=== PATIENT | male | born 1965 | race Caucasian/White ===

== ENCOUNTER 2021-01-29 07:13 | Emergency (ER) | payer OTHER ==
[~2021-01-29] VITALS: Ht 185.4 cm; Wt 90.7 kg
[~2021-01-29 07:13] MED LIST: ACIDOPHILUS LA1 EACH PO; ADULT LOW DOSE81 MG PO; ALBUTEROL2.5 MG/31; ALBUTEROL2.5 MG/31 IH; AZITHROMYCIN 2250 MG PO; COMBIVENT INH; DIFLUCAN150 MG PO; DUONEB 2.5-0.5 M3 ML INH; DURAGESIC1 EAC2 TRANSDERM; FLUZONE 2045 MCG/011; IBUPROFEN 200200 M1 PO; KEFLEX500 MG PO; LISINOPRIL-HCT1 EAC1 PO; MEDROL DOSPAK21 TA1 PO; MILLTRIUM SENI1 EACH PO; MOBIC7.5 M1 PO; NOHOMEMEDICATIONS; NORCO 5-325 TA1 EACH PO; OMEGA-31000 M1; OXYCODONE HCL5 M1 PO; PERCOCET PO; PNEUMOVAX25 MCG/0.5; PREDNISONE 20 M20 M1 PO; PREDNISONE 20 M20 MG PO; PROVENTIL HFA6.7 G1 INH; VANCOMYCIN1.25 GM/25 IV; VENTOLIN HFA 1818 GM INH; VITAMIN D400 UNI1; ZPAK PO
[2021-01-29] MEDS ORDERED: TESSALON PERLE100 MG PO (08:32)
[2021-01-29] MEDS ORDERED: VENTOLIN HFA 1818 GM INH (08:32)
[2021-01-29 08:42] VITALS: BP 152/72
== END 2021-01-29 08:52 | disposition home or self-care (01) ==
LOC: M.ERS 07:13
DX: J40 Bronchitis, not specified as acute or chronic (principal); Z20.822 Contact with and (suspected) exposure to COVID-19; Z85.118 Personal history of other malignant neoplasm of bronchus and lung